=== PATIENT | male | born 2000 | race Caucasian/White ===

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

== ENCOUNTER 2025-09-24 08:46 | Emergency (ER) | payer MEDICAID ==
[~2025-09-24] VITALS: Ht 177.8 cm; Wt 90.3 kg
[2025-09-24 09:04] VITALS: BP 142/94; TEMP 99.4; O2SAT 98
[2025-09-24] MEDS ORDERED: AMOX875T2 PO (10:20)
[2025-09-24] MEDS ORDERED: IBUPROFEN 600 MG TAB PO ONE (10:25)
[2025-09-24] MEDS: KETOROLAC 60 MG/2 ML VIAL IM ONE (10:32)
[2025-09-24] MEDS: AUGMENTIN 875 MG TAB PO ONE (10:32)
[2025-09-24] MEDS: ACETAMINOPHEN 500 MG TAB PO ONE (10:38)
== END 2025-09-24 10:43 | disposition home or self-care (01) ==
LOC: M ED 08:46
DX: K04.7 Periapical abscess without sinus (principal); K02.9 Dental caries, unspecified; F41.9 Anxiety disorder, unspecified; F90.9 Attention-deficit hyperactivity disorder, unspecified type; Z79.2 Long term (current) use of antibiotics
CPT/HCPCS: 96372; 99283; J1885